=== PATIENT | male | born 2000 | race African-American/Black ===

== ENCOUNTER 2025-01-13 11:50 | Emergency (ER) | payer SELFPAY ==
[~2025-01-13] VITALS: Ht 180.3 cm; Wt 52.0 kg
[2025-01-13 11:52] VITALS: BP 135/87; PULSE 106; RESP 14; TEMP 37.1; O2SAT 97
== END 2025-01-13 12:00 | disposition left against medical advice (07) ==
LOC: ER 11:50
DX: S01.511A Laceration without foreign body of lip, initial encounter (principal); Y04.8XXA Assault by other bodily force, initial encounter; Y93.89 Activity, other specified; Y92.89 Other specified places as the place of occurrence of the external cause; Y99.8 Other external cause status
CPT/HCPCS: 99281